=== PATIENT | female | born 1965 | race Caucasian/White ===

== ENCOUNTER 2017-01-10 08:10 | Emergency (ER) | payer OTHER ==
[2017-01-10 08:14] VITALS: BP 131/79; TEMP 97.3; BMI 36.6
--- NOTE | 2017-01-10 08:21 | ED.PDOC ---
General ED Provider: Dr. JAMES REID JR Chief Complaint: Extremity Pain/Injury Stated Complaint: letting her dog out pain to right ankle hit right manning,,,,,, 97.3 89 20 96% 131/79 6/10, normally bruises , no bruise , pain, to , ankle , worried , Time Seen by Physician: 08:20 Mode of Arrival: Walk-In Information Source: Patient Exam Limitations: No limitations Nursing and Triage Documentation Reviewed and Agree: No Review of Systems - Review Of Systems Constitutional: Reports: No symptoms Eyes: Reports: No symptoms Ears, Nose, Mouth, Throat: Reports: No symptoms Respiratory: Reports: No symptoms Cardiac: Reports: No symptoms GI: Reports: No symptoms : Reports: No symptoms Musculoskeletal: Reports: No symptoms, Other (tender right tibia more proximall complains of pain more distally (not as tender)) Skin: Reports: Bruising Neurological: Reports: No symptoms Endocrine: Reports: Increased hunger, Unexplained weight gain Hematologic/Lymphatic: Reports: No symptoms All Other Systems: Other Past Medical History - Past Medical History Endocrine: Reports: DM 2, Hypothyroid Cardiovascular: Reports: None Respiratory: Reports: None Hematological: Reports: None Gastrointestinal: Reports: None Genitourinary: Reports: None Neuro/Psych: Reports: Anxiety Musculoskeletal: Reports: None Cancer: Reports: Unknown Last Menstrual Period: 2 months ago (menopause) - Surgical History General Surgical History: Reports: (x2), Cholecystectomy, Other ( thyroid ), Unknown (thyroid) - Family History Family History: Reports: Unknown - Social History Smoking Status: Current every day smoker Hx Substance Use: No Alcohol Screening: None Physical Exam - Physical Exam Appearance: Well-appearing, Obese Pain Distress: Mild Neck: Supple Respiratory: Airway patent Musculoskeletal: Normal strength, ROM intact, No calf tenderness (antr tibial tenderness), Edema (slight) Skin: Warm, Dry (slight ecchymoses along tibia) Neurological: Sensation intact, Motor intact, Reflexes intact, Cranial nerves intact, Alert, Oriented Critical Care Note - Critical Care Note Total Time (mins): 0 Course - Course Orders, Labs, Meds: Orders Category Date Time Status TIBIA/FIBULA, RIGHT 2 VIEW Stat RADS 01/10/17 08:23 Completed Vital Signs: Temp Pulse Resp BP Pulse Ox 01/10/17 08:11 97.3 F L 89 20 131/79 96 Departure - Departure Time of Disposition: 08:55 Disposition: HOME SELF-CARE Discharge Problem: Injury of lower extremity Instructions: Contusion in Adults (ED) Condition: Good Pt referred to PMD for follow-up: Yes Additional Instructions: elevate area 2 hours twice a day ice 20 minutes three times aday limit weight bearing as tolerated follow up PMD if not resolved in 3-5 days tylenol for three days avoid NSAIDS for 5 days Allergies/Adverse Reactions: Allergies No Known Allergies Allergy (Unverified 01/10/17 08:14) Home Medications: Ambulatory Orders Cetirizine HCl [Zyrtec] 10 mg PO DAILY 01/10/17 Citalopram Hydrobromide [Celexa] 40 mg PO DAILY 01/10/17 Fenofibrate Nanocrystallized [Triglide] 160 mg PO DAILY 01/10/17 Insulin Detemir [Levemir] 25 unit SUBCUT BEDTIME 01/10/17 Insulin Lispro [Humalog] 2 - 4 unit SUBCUT PRN PRN 01/10/17 Levothyroxine Sodium [Synthroid] 200 mcg PO DAILY 01/10/17
--- NOTE | 2017-01-10 08:48 | DI ---
Exam: Two x-rays of the right tibia-fibula. Comparison: None available. Reason for exam: Struck leg on counter FINDINGS: No acute fracture or malalignment. The cortex is intact. There are no abnormal soft tis opal densities or radiopaque retained foreign bodies. Impression: No acute fracture or dislocation in the right tibia-fibula.
== END 2017-01-10 09:02 | disposition home or self-care (01) ==
LOC: ED 08:10
DX: S80.11XA Contusion of right lower leg, initial encounter (principal); M25.571 Pain in right ankle and joints of right foot; W22.8XXA Striking against or struck by other objects, initial encounter; F17.210 Nicotine dependence, cigarettes, uncomplicated
CPT/HCPCS: 99282